=== PATIENT | male | born 1965 | race Caucasian/White ===

== ENCOUNTER 2021-06-20 08:21 | Outpatient (REF) | payer OTHER, SELFPAY | END 2021-06-20 08:22 | disposition home or self-care (01) | LOC: HO.LAB 08:21 | PROVIDERS: Visit Provider Internal Medicine | DX: Z20.822 Contact with and (suspected) exposure to COVID-19 (principal) | CPT/HCPCS: 36415; 87635; C9803; U0003; U0005 ==